=== PATIENT | male | born 1960 | race Caucasian/White ===

== ENCOUNTER 2021-10-23 16:51 | Emergency (ER) | payer OTHER, MEDICARE ==
[2021-10-23] MEDS ORDERED: Rabies Vaccine Human 2.5 UNITS VIAL ONE (18:07)
[2021-10-23] MEDS ORDERED: Bacitracin 1 PK ONE (18:53)
== END 2021-10-23 19:08 | disposition home or self-care (01) ==
LOC: CSHERS 16:51
DX: S01.452A Open bite of left cheek and temporomandibular area, initial encounter (principal); S01.451A Open bite of right cheek and temporomandibular area, initial encounter; S01.312A Laceration without foreign body of left ear, initial encounter; Z23 Encounter for immunization; G40.909 Epilepsy, unspecified, not intractable, without status epilepticus; Z79.899 Other long term (current) drug therapy; W54.0XXA Bitten by dog, initial encounter
CPT/HCPCS: 90375; 90471; 90675; 96372

== ENCOUNTER → 2021-10-26 | Day surgery (SDC) | payer MEDICARE ==
[~2021-10-26] MED LIST: Rabies Vaccine Human 2.5 UNITS VIAL ONE
== END ==
LOC: CSHER/OP 14:50
PROVIDERS: ATTEND Student in an Organized Health Care Education/Training Program
DX: Z29.14 Encounter for prophylactic rabies immune globulin (principal)
CPT/HCPCS: 90471; 90675